=== PATIENT | male | born 1965 | race Two or more races ===

== ENCOUNTER 2018-09-15 02:04 | Emergency (ER) | payer BC, OTHER ==
[~2018-09-15] VITALS: Ht 162.6 cm; Wt 68.0 kg
[2018-09-15 02:06] VITALS: BP 127/99
== END 2018-09-15 03:19 | disposition home or self-care (01) ==
LOC: ED 02:41
DX: N40.1 Benign prostatic hyperplasia with lower urinary tract symptoms (principal); R33.8 Other retention of urine
CPT/HCPCS: 51702; 99284